=== PATIENT | male | born 1965 | race Caucasian/White ===

== ENCOUNTER 2023-12-06 16:29 | Emergency (ER) | payer SELFPAY | END 2023-12-06 17:00 | disposition home or self-care (01) | LOC: ERS 16:29 | DX: L02.213 Cutaneous abscess of chest wall (principal); E11.9 Type 2 diabetes mellitus without complications; I10 Essential (primary) hypertension; F17.200 Nicotine dependence, unspecified, uncomplicated; Z55.6 Problems related to health literacy | CPT/HCPCS: 99282 ==